=== PATIENT | female | born 1990 | race Native Hawaiian/Other Pacific Islander ===

== ENCOUNTER 2017-05-04 10:35 | Emergency (ER) | payer OTHER ==
[~2017-05-04] VITALS: Ht 154.9 cm; Wt 42.2 kg
[2017-05-04 11:28] LABS: PLATELET COUNT 201 K/uL (152-353)
[2017-05-04 11:34] LABS: POTASSIUM 3.9 mmol/L (3.6-5.2); SODIUM 136 mmol/L (136-145)
[2017-05-04 13:06] VITALS: BP 106/73; TEMP 97.8
== END 2017-05-04 13:06 | disposition home or self-care (01) ==
LOC: ED 10:35
PROVIDERS: Emergency Medicine
DX: N20.0 Calculus of kidney (principal)
CPT/HCPCS: 80053; 80307; 81000; 81025; 82150; 83690; 85027; 86318; 99283; G0479

== ENCOUNTER 2022-12-19 08:08 | Outpatient (CLI) | payer BC | END 2022-12-19 20:48 | disposition home or self-care (01) | LOC: US 08:08 | PROVIDERS: ATTEND Nurse Practitioner Family | DX: R10.13 Epigastric pain (principal) ==